=== PATIENT | female | born 1965 | race Caucasian/White ===

== ENCOUNTER → 2019-06-08 | Outpatient (CLI) | payer BC ==
--- NOTE | 2019-06-08 12:23 | CTL ---
EXAMINATION TYPE: CT Low Dose Lung DATE OF EXAM ORDERED: 06/08/2019 HISTORY: . Lung cancer screening CT DLP: 71.[address] CTDI: 1.88 mGy Automated exposure control for dose reduction was used. SCREENING VISIT: Initial screening COMPARISON: None TECHNIQUE: Low dose computed tomography scan was performed through the chest at 1 mm thick sections a nd reconstructed images in the coronal plane at [address] DIAGNOSTIC QUALITY: Satisfactory FINDINGS: LUNG NODULES: Small area of linear consolidation with slight nodularity in the medial right middle lobe on axial im age 89 measuring 0.4 cm. Additional linear areas are seen in the lingula. Otherwise, no suspicious n odules, masses or infiltrates. LUNGS: COPD: Severity: Mild Fibrosis: Severity: None Lymph nodes: None Other findings: None RIGHT PLEURAL SPACE: Effusion: None Calcification: None Thickening: None Pneumothorax: None LEFT PLEURAL SPACE: Effusion: None Calcification: None Thickening: None Pneumothorax: None HEART: Heart Size: Normal Coronary calcification: Mild Pericardial effusion: None OTHER FINDINGS: Upper abdomen: Normal Bony thorax: Normal Supraclavicular region: Normal Other: Bilateral breast implants. Enlarged ascending thoracic aorta measuring 4.5 cm. IMPRESSION: Linear scarring/atelectasis in the medial right middle lobe and lingula with tiny area of nodularity measuring 0.4 cm. Ascending thoracic aortic aneurysm measuring 4.[address] CHEST RECOMMENDATION: Annual low-dose CT chest in one year. CT LUNG RAD: 2S
== END | disposition home or self-care (01) ==
LOC: RADCTMAIN 10:57
PROVIDERS: ATTEND Family Medicine
DX: Z12.2 Encounter for screening for malignant neoplasm of respiratory organs (principal); F17.210 Nicotine dependence, cigarettes, uncomplicated; I71.2 Thoracic aortic aneurysm, without rupture

== ENCOUNTER → 2021-03-26 | Outpatient (CLI) | payer BC ==
--- NOTE | 2021-03-26 16:28 | XR ---
EXAMINATION TYPE: XR lumbar spine 2 or 3V DATE OF EXAM: 03/26/2021 COMPARISON: None HISTORY: Low back pain TECHNIQUE: 3 view lumbar spine FINDINGS: There are 5 lumbar-type vertebral bodies. The pedicles are intact. Vertebral body heights a re preserved. Spondylosis is present. Scoliosis is present. There is severe loss of disc height L2-3 L3-4 milder narrowing is present L1-2. There is a grade 1 re trolisthesis of L2 on L3 and L3 on L4. IMPRESSION: 1. Degenerative disc changes L1-2 through L3-4. 2. Grade 1 retrolisthesis L2-3 L3-4
== END | disposition home or self-care (01) ==
LOC: RADXRMAIN 14:43
PROVIDERS: ATTEND Family Medicine
DX: M51.36 Other intervertebral disc degeneration, lumbar region (principal); M43.16 Spondylolisthesis, lumbar region
CPT/HCPCS: 72100